=== PATIENT | male | born 1995 | race Caucasian/White ===

== ENCOUNTER 2018-12-13 06:20 | Day surgery (SDC) | payer OTHER ==
[2018-12-13] MEDS ORDERED: MEPERIDINE 25 MG INJ IV (08:00)
[2018-12-13] MEDS ORDERED: DIPHENHYDRAMINE 50 MG INJ IV (08:00)
[2018-12-13] MEDS ORDERED: LABETALOL HCL 20MG INJ IV (08:00)
[2018-12-13] MEDS ORDERED: hydrALAzine 20 MG INJ IV (08:00)
[2018-12-13] MEDS ORDERED: FENTAnyl 50 MCG/ML VIAL IV ×2 (08:00)
[2018-12-13] MEDS ORDERED: ONDANSETRON 4 MG INJ IV (08:00)
[2018-12-13] MEDS ORDERED: HYDROmorphONE 1 MG/5 ML IV SYRINGE IV ×2 (08:00)
[2018-12-13] MEDS ORDERED: OXYCODONE/ACETAMINOPHEN (5/325) TAB PO (08:00)
[2018-12-13] MEDS ORDERED: METOCLOPRAMIDE 10 MG INJ IV (08:00)
[2018-12-13] MEDS ORDERED: FENTAnyl 50 MCG/ML VIAL (08:05)
[2018-12-13] MEDS ORDERED: CEFAZOLIN 1 GM INJ (08:05)
[2018-12-13] MEDS ORDERED: ROCURONIUM 50 MG INJ (08:05)
[2018-12-13] MEDS ORDERED: PROPOFOL 20 ML (08:05)
[2018-12-13] MEDS ORDERED: MIDAZOLAM 1 MG/ML 2 ML INJ (08:05)
[2018-12-13] MEDS: LIDOCAINE 1% (MPF) 30 ML INJ (08:29)
[2018-12-13] MEDS ORDERED: KETOROLAC 30 MG INJ (08:32)
[2018-12-13] MEDS ORDERED: METOCLOPRAMIDE 10 MG INJ (08:32)
[2018-12-13] MEDS ORDERED: DEXAMETHASONE 4 MG/ML 5 ML INJ (08:32)
[2018-12-13] MEDS ORDERED: ONDANSETRON 4 MG INJ (08:32)
[2018-12-13] MEDS ORDERED: GLYCOPYRROLATE 0.4 MG INJ (08:48)
[2018-12-13] MEDS ORDERED: NEOSTIGMINE 3 MG/3 ML SYRINGE (08:48)
== END 2018-12-13 11:30 | disposition home or self-care (01) ==
LOC: SDS 06:20
DX: A63.0 Anogenital (venereal) warts (principal)
CPT/HCPCS: 45330; 88304